=== PATIENT | female | born 1950 | race Caucasian/White ===

== ENCOUNTER 2016-11-26 16:09 | Emergency (ER) | payer OTHER, MEDICAID ==
--- NOTE | 2016-11-26 16:24 | EDPHY ---
H & P HPI/ROS: HPI CHIEF COMPLAINT: Left Vieyra epistaxis HISTORY OF PRESENT ILLNESS: This patient very pleasant 66-year-old female, she does not take any daily medications, denies taking blood thinners, she presents emergency room with left Vieyra epistaxis. Patient tells me that approximately 30 minutes ago she started developing left Vieyra epistaxis. She was unable to control her home she decided come the emergency room for evaluation. She denies history of extensive nose bleed she does tell me she has had 2 other episodes recently. No easy bruising. Not on anticoagulation. Since arriving to the emergency room by EMS the nosebleed has resolved. Denies trauma. Past Medical History: Denies any medical history Past Surgical History: Denies recent surgical history Social History: Lives locally, denies drugs, alcohol, tobacco products, primary care doctor is [facility] Family History: Noncontributory ROS REVIEW OF SYSTEMS: A comprehensive 10 point review of systems is otherwise negative aside from elements mentioned in the history of present illness. Exam Constitutional triage nursing summary reviewed, vital signs reviewed, awake/ alert. Eyes normal conjunctivae and sclera, EOMI, PERRLA. HENT left near dark epistaxis anterior region, clotted, right near normal. No active bleeding at this time. normal inspection, atraumatic, moist mucus membranes, no epistaxis, neck supple/ no meningismus, no raccoon eyes. Respiratory clear to auscultation bilaterally, normal breath sounds, no respiratory distress, no wheezing. Cardiovascular rate normal, regular rhythm, no murmur, no edema, distal pulses normal. Gastrointestinal soft, non-tender, no rebound, no guarding, normal bowel sounds, no distension, no pulsatile mass. Genitourinary no CVA tenderness. Musculoskeletal no midline vertebral tenderness, full range of motion, no calf swelling, no tenderness of extremities, no meningismus, good pulses, neurovascularly intact. Skin pink, warm, & dry, no rash, skin atraumatic. Neurologic awake, alert and oriented x 3, AAOx3, moves all 4 extremities equally, motor intact, sensory intact, CN II-XII intact, normal cerebellar, normal vision, normal speech. Psychiatric normal mood/affect. Heme/Lymph/Immune no lymphadenopathy. Differential Diagnosis: Includes but is not limited to in a particular order, epistaxis, anterior epistaxis, posterior epistaxis Medical Decision Making: Plan for this time epistaxis has resolved. Nasal clamp for 20 minutes re-evaluate. Re-evaluation: 1723: Re-examination at this time CBC unremarkable no evidence of low platelets or anemia, epistaxis has resolved. Nasal clamp removed no further bleeding. Will outpatient go home. Return precautions given. She understands to apply direct pressure for 20-30 minutes if she rebleeds return emergency room if she cannot get stop. Source: Patient, EMS - Medical/Surgical History Hx Asthma: No Hx Chronic Respiratory Disease: No Hx Diabetes: No Hx Cardiac Disease: No Hx Renal Disease: No Hx Cirrhosis: No Hx Alcoholism: No Hx HIV/AIDS: No Hx Splenectomy or Spleen Trauma: No Other PMH: PMH: tonselecomy, vaginal issue at 18 - Social History Smoking Status: Never smoked Constitutional: Initial Vital Signs Temperature (C) 36.9 C 11/26/16 16:26 Heart Rate 69 11/26/16 16:26 Respiratory Rate 18 11/26/16 16:26 Blood Pressure 121/69 H 11/26/16 16:26 O2 Sat (%) 93 11/26/16 16:26 O2 Delivery Mode Room Air Allergies/Adverse Reactions: No Known Allergies Allergy (Unverified 01/08/16 16:58) Home Medications: Medication Instructions Recorded NK [No Known Home Meds] 01/08/16 Medical Decision Making - Data Points Laboratory Results: Laboratory Results 11/26/16 16:45 11/26/16 16:45 WBC 6.70 10^3/uL 10^3/uL (3.80-9.50) RBC 4.40 10^6/uL 10^6/uL (4.18-5.33) Hgb 13.4 g/dL g/dL (12.6-16.3) Hct 39.9 % % (38.0-47.0) MCV 90.7 fL fL (81.5-99.8) MCH 30.5 pg pg (27.9-34.1) MCHC 33.6 g/dL g/dL (32.4-36.7) RDW 12.6 % % (11.5-15.2) Plt Count 181 10^3/uL 10^3/uL (150-400) MPV 12.2 fL H fL (8.7-11.7) Neut % (Auto) 71.7 % % (39.3-74.2) Lymph % (Auto) 19.3 % % (15.0-45.0) [place] % (Auto) 7.0 % % (4.5-13.0) Eos % (Auto) 1.3 % % (0.6-7.6) Baso % (Auto) 0.4 % % (0.3-1.7) Nucleat RBC Rel Count 0.0 % % (0.0-0.2) Absolute Neuts (auto) 4.80 10^3/uL 10^3/uL (1.70-6.50) Absolute Lymphs (auto) 1.29 10^3/uL 10^3/uL (1.00-3.00) Absolute Monos (auto) 0.47 10^3/uL 10^3/uL (0.30-0.80) Absolute Eos (auto) 0.09 10^3/uL 10^3/uL (0.03-0.40) Absolute Basos (auto) 0.03 10^3/uL 10^3/uL (0.02-0.10) Absolute Nucleated RBC 0.00 10^3/uL 10^3/uL (0-0.01) Immature Gran % 0.3 % % (0.0-1.1) Immature Gran # 0.02 10^3/uL 10^3/uL (0.00-0.10) Departure - Departure Disposition: Home, Routine, Self-Care Clinical Impression: Epistaxis Condition: Good Instructions: Nosebleed (ED) Additional Instructions: 1. Please return emergency room if you have any worsening symptoms questions or concerns. 2. If you develops a rebleed of the nose apply direct pressure for 20 minutes. Tilt her head forward. To see if he can get it to stop. If you are having trouble getting is not return emergency room. Referrals: Patient,NotPresent [Primary Care Provider] - As per Instructions Arlyn Adkins MD [Medical Doctor] - As per Instructions
[2016-11-26 16:55] LABS: % IMMATURE GRANULYOCYTES 0.3 % (0.0-1.1); ABSOLUTE IMMATURE GRANULOCYTES 0.02 10^3/uL (0.00-0.10); ADD DIFF? NO; ADD MORPH? NO; ADD SCAN? NO; ATYPICAL LYMPHOCYTE FLAG 10 (0-99); FRAGMENT RBC FLAG 0 (0-99); HEMATOCRIT 39.9 % (38.0-47.0); HEMOGLOBIN 13.4 g/dL (12.6-16.3); LEFT SHIFT FLG 10 (0-99); LIPEMIA HEMOLYSIS FLAG 80 (0-99); MEAN CELL HEMOGLOBIN 30.5 pg (27.9-34.1); MEAN CELL HEMOGLOBIN CONCENTR. 33.6 g/dL (32.4-36.7); MEAN CELL VOLUME 90.7 fL (81.5-99.8); MEAN PLATELET VOLUME 12.2 fL (8.7-11.7); PLATELET CLUMPS FLAG 0 (0-99); PLATELET COUNT 181 10^3/uL (150-400); RED CELL DISTRIBUTION WIDTH 12.6 % (11.5-15.2)
[2016-11-26 18:24] VITALS: BP 146/85; PULSE 72; RESP 20; TEMP 98.1; O2SAT 95
== END 2016-11-26 18:23 | disposition home or self-care (01) ==
LOC: EDUNIT#
DX: R04.0 Epistaxis (principal)

== ENCOUNTER 2016-12-06 11:32 | Emergency (ER) | payer OTHER, MEDICAID ==
[2016-12-06] MEDS ORDERED: OXYMETAZOLINE 30 ML NASAL SPRAY EACHNARE ONE (11:37)
[2016-12-06] MEDS ORDERED: OXYMETAZOLINE 30 ML NASAL SPRAY ONE (11:48)
[2016-12-06 11:55] VITALS: RESP 16
--- NOTE | 2016-12-06 12:35 | EDPHY ---
H & P Stated Complaint: Nose bleed Time Seen by Provider: 12/06/16 11:32 HPI/ROS: CHIEF COMPLAINT: nosebleed HISTORY OF PRESENT ILLNESS: 66-year-old female presents emergency department with a nosebleed that started 40 minutes prior to arrival. Patient reports she woke up, blew her nose and gently picked it and she started bleeding out of her left nare. Patient had a nasal clamp at home that broke. She was not able to control with direct pressure. Patient reports increased nosebleeds over the last year, she was seen in the emergency department 10 days ago with an epistaxis that was controlled with direct pressure. Patient is not on any anticoagulants. She denies chest pain or shortness of breath. She denies headache. REVIEW OF SYSTEMS: A comprehensive 10 point review of systems is otherwise negative aside from elements mentioned in the history of present illness. Source: Patient, Old records Exam Limitations: No limitations - Medical/Surgical History Hx Asthma: No Hx Chronic Respiratory Disease: No Hx Diabetes: No Hx Cardiac Disease: No Hx Renal Disease: No Hx Cirrhosis: No Hx Alcoholism: No Hx HIV/AIDS: No Hx Splenectomy or Spleen Trauma: No Other PMH: PMH: tonselecomy, vaginal issue at 18 - Social History Smoking Status: Never smoked - Physical Exam Exam: General: Alert, nontoxic. ENT: Tympanic membranes clear, external auditory canal, external ear and surrounding soft tissue including over the mastoid unremarkable. Nasopharynx with area of excoriation to left nare nasal septum, no current bleeding, there is no rhinorrhea. Oropharynx without erythema or edema. There is no exudate. No tonsillar hypertrophy. No asymmetry. The uvula is midline. No elevation of tongue. There is no hoarseness. No drooling, patient has good control of their oral secretions. No trismus. No stridor. Cardiac: Regular rate and rhythm. Respiratory: Lungs clear to auscultation bilaterally. Neurological: no meningismus. Skin: No rashes. Constitutional: Initial Vital Signs Heart Rate 66 12/06/16 11:35 Respiratory Rate 16 12/06/16 11:35 Blood Pressure 157/84 H 12/06/16 11:35 O2 Sat (%) 96 12/06/16 11:35 O2 Delivery Mode Room Air Allergies/Adverse Reactions: No Known Allergies Allergy (Unverified 01/08/16 16:58) Home Medications: Medication Instructions Recorded NK [No Known Home Meds] 01/08/16 Medical Decision Making ED Course/Re-evaluation: 66-year-old female presents emergency department by ambulance for epistaxis. On arrival to the emergency department she has a nasal clamp in place with no current bleeding. Patient flew her nose to clear out the clot and 1 spray of Afrin was placed in each nostril. No epistaxis identified on exam though area of friable tissue to left nare was identified. Patient was kept in the emergency department for 1 hour with no return of epistaxis. She has an appointment next week with ENT. - Data Points Medications Given: Discontinued Medications Oxymetazoline HCl (Afrin Nasal [place]) 2 sprays EACHNARE EDNOW ONE Stop: 12/06/16 11:38 Last Admin: 12/06/16 11:50 Dose: 1 spray Departure - Departure Disposition: Home, Routine, Self-Care Clinical Impression: Anterior epistaxis Condition: Good Instructions: Nosebleed (ED) Additional Instructions: Use 1 spray of Afrin in each nostril daily. Sleep with a humidifier at night, drink plenty of fluids, use saline nasal spray a few times a day. Follow up with the Ear Nose and Throat doctor as scheduled. Return to the emergency department for any recurrent nosebleed that does not stop after placing the nasal clamp for 20 minutes. Referrals: [facility] [Other] - As per Instructions Harjeet Roque PA [Physician Director Of Student Aid] - As per Instructions (ENT in [place])
[2016-12-06 13:06] VITALS: BP 165/81; PULSE 62; O2SAT 92
== END 2016-12-06 13:05 | disposition home or self-care (01) ==
LOC: EDUNIT#
DX: R04.0 Epistaxis (principal)

== ENCOUNTER 2017-06-17 10:26 | Emergency (ER) | payer OTHER, MEDICAID ==
[2017-06-17] MEDS ORDERED: ASPIRIN 81 MG CHEWABLE TAB PO ONE (10:47)
[2017-06-17] MEDS ORDERED: NS 500 ML IV ONE (10:47)
--- NOTE | 2017-06-17 10:52 | EDPHY ---
H & P Time Seen by Provider: 06/17/17 10:26 HPI/ROS: CHIEF COMPLAINT: Lightheaded HISTORY OF PRESENT ILLNESS: The patient is a 67-year-old female who presents emergency department with ongoing lightheadedness. Patient states that she may have had some bad food that her friend cooked her last night. She felt as though she had an upset stomach. She developed significant lightheadedness around 9:00 p.m. last night. Is persisted until she called EMS today. She has been unable to get out of her bed. EMS found the patient incontinent of both urine and stool. The patient denies chest pain or shortness of breath. Her abdominal symptoms have resolved. She has no pain. She denies nausea or vomiting. Patient has no dysuria or frequency. Patient denies headache. She has no focal weakness or numbness. REVIEW OF SYSTEMS: My complete review of systems is negative except as mentioned in the HPI. Past Medical/Surgical History: Includes previous episodes of lightheadedness Past surgical history: tonsillectomy Social History: The patient lives at home alone. Smoking Status: Never smoked Physical Exam: Vitals noted GENERAL: No acute distress, alert. Mildly disheveled. Closed 30. HEENT: Eyes normal to inspection, normal pharynx, no signs of dehydration. NECK: No thyromegaly, no lymphadenopathy, supple. RESPIRATORY: Clear to auscultation bilaterally, no rales, rhonchi or wheezing. CVS: Regular rate and rhythm, no rubs, murmurs, or gallops. ABDOMEN: Soft, nontender, nondistended, no organomegaly. BACK: Normal to inspection, no CVA tenderness. SKIN: Normal color, no rash, warm, dry. No pallor. EXTREMITIES: No pedal edema, no calf tenderness, no Homans sign or cords, no joint swelling. NEURO/PSYCH: Higher functions: Alert and Oriented x3. Normal speech and cognition. Normal mood and affect. Cranial nerves: Normal as tested. Cerebellar: Normal as tested. Good finger to nose, good [id number], normal gait. Peripheral exam: Normal motor exam. Normal sensation. Normal reflexes. Constitutional: Initial Vital Signs Temperature (C) 36.3 C 06/17/17 11:05 Heart Rate 71 06/17/17 11:05 Respiratory Rate 16 06/17/17 11:05 Blood Pressure 166/80 H 06/17/17 11:05 O2 Sat (%) 93 06/17/17 11:05 O2 Delivery Mode Room Air Allergies/Adverse Reactions: No Known Allergies Allergy (Unverified 06/17/17 11:04) Home Medications: Medication Instructions Recorded Garlic 06/17/17 [place] 06/17/17 Turmeric 06/17/17 Medical Decision Making - Diagnostics EKG Interpretation: Sinus rhythm at 60. Normal axis. Normal intervals. No ST or T-wave abnormalities. Imaging Results: Imaging Impressions Chest X-Ray 06/17/17 10:48 Impression: Impending CHF. Head CT 06/17/17 10:51 Impression: 1. Moderate atrophy. 2. No hemorrhage, mass effect, or definite acute peripheral infarct. 3. Moderate nonspecific hypodensities in the white matter of bilateral cerebral hemispheres. Differential diagnosis includes microvascular ischemic disease, post-infectious/post-inflammatory sequela, atypical demyelinating disease, or migraine-related sequela. Small white matter lacunar infarcts may also have this appearance. If symptoms worsen, additional imaging may be necessary. Findings discussed with Beatrice Bradford M.D. at 11:58 hour, 06/17/2017. ED Course/Re-evaluation: In the emergency department I met EMS on arrival. I took report from the mine development engineer. Patient's glucose was 126. I discussed the plan with the patient. I answered all her questions. Laboratory studies, chest x-ray, EKG and head CT were ordered. Patient's CBC is unremarkable. Chemistry panel is essentially normal. D-dimer is elevated at 0.69. Head CT: No acute disease noted. Please refer the dictated report. I discussed with the patient answered all her questions. On recheck the patient stated she was feeling better. She has no complaints of pain. She is no longer feeling lightheaded or dizzy. Because of her elevated D dimer a CT angio of the chest was ordered. CT angio chest: Please refer the dictated report. No acute disease noted. I rechecked the patient and she was feeling better. She had no complaints on recheck. Clear to auscultation laterally. No focal deficits. She was able to ambulate without difficulty. Differential Diagnosis: My differential includes but is not limited to electrolyte abnormality, sugar abnormality, ACS, acute SD, dysrhythmia, CVA, pneumonia urinary tract infection , dehydration, bacteremia, sepsis - Data Points Laboratory Results: Laboratory Results 06/17/17 10:56 06/17/17 10:56 06/17/17 06/17/17 06/17/17 12:55 10:56 10:56 WBC RBC Hgb Hct MCV MCH MCHC RDW Plt Count MPV Neut % (Auto) Lymph % (Auto) [place] % (Auto) Eos % (Auto) Baso % (Auto) Nucleat RBC Rel Count Absolute Neuts (auto) Absolute Lymphs (auto) Absolute Monos (auto) Absolute Eos (auto) Absolute Basos (auto) Absolute Nucleated RBC Immature Gran % Immature Gran # PT 13.0 SEC SEC (12.0-15.0) INR 0.96 (0.83-1.16) APTT 25.4 SEC SEC (23.0-38.0) D-Dimer 0.69 ug/mLFEU H ug/mLFEU (0.00-0.50) Sodium 144 mEq/L mEq/L (134-144) Potassium 4.2 mEq/L mEq/L (3.5-5.2) Chloride 110 mEq/L mEq/L (97-110) Carbon Dioxide 21 mEq/l L mEq/l (22-31) Anion Gap 13 mEq/L mEq/L (8-16) BUN 11 mg/dL mg/dL (7-23) Creatinine 0.6 mg/dL mg/dL (0.6-1.0) Estimated GFR > 60 Glucose 127 mg/dL H mg/dL (70-100) Calcium 10.3 mg/dL mg/dL (8.5-10.4) Total Bilirubin 1.2 mg/dL mg/dL (0.1-1.4) Conjugated Bilirubin 0.2 mg/dL mg/dL (0.0-0.5) Unconjugated Bilirubin 1.0 mg/dL mg/dL (0.0-1.1) AST 14 IU/L IU/L (14-46) ALT 30 IU/L IU/L (9-52) Alkaline Phosphatase 74 IU/L IU/L (38-126) Troponin I < 0.012 ng/mL ng/mL (0.000-0.034) Total Protein 6.6 g/dL g/dL (6.3-8.2) Albumin 3.9 g/dL g/dL (3.5-5.0) Lipase 66 IU/L IU/L (23-300) Urine Color YELLOW Urine Appearance CLEAR Urine pH 7.0 (5.0-7.5) Ur Specific [place] 1.009 (1.002-1.030) Urine Protein NEGATIVE (NEGATIVE) Urine Ketones NEGATIVE (NEGATIVE) Urine Blood NEGATIVE (NEGATIVE) Urine Nitrate NEGATIVE (NEGATIVE) Urine Bilirubin NEGATIVE (NEGATIVE) Urine Urobilinogen NEGATIVE EU EU (0.2-1.0) Ur Leukocyte Esterase NEGATIVE (NEGATIVE) Urine RBC NONE SEEN /hpf /hpf (0-3) Urine WBC NONE SEEN /hpf /hpf (0-3) Ur Epithelial Cells TRACE /lpf /lpf (NONE-1+) Urine Mucus TRACE /lpf /lpf (NONE-1+) Urine Glucose NEGATIVE (NEGATIVE) 06/17/17 10:56 WBC 7.13 10^3/uL 10^3/uL (3.80-9.50) RBC 5.15 10^6/uL 10^6/uL (4.18-5.33) Hgb 15.4 g/dL g/dL (12.6-16.3) Hct 45.0 % % (38.0-47.0) MCV 87.4 fL fL (81.5-99.8) MCH 29.9 pg pg (27.9-34.1) MCHC 34.2 g/dL g/dL (32.4-36.7) RDW 12.5 % % (11.5-15.2) Plt Count 203 10^3/uL 10^3/uL (150-400) MPV 12.5 fL H fL (8.7-11.7) Neut % (Auto) 77.9 % H % (39.3-74.2) Lymph % (Auto) 14.7 % L % (15.0-45.0) [place] % (Auto) 5.5 % % (4.5-13.0) Eos % (Auto) 0.6 % % (0.6-7.6) Baso % (Auto) 0.3 % % (0.3-1.7) Nucleat RBC Rel Count 0.0 % % (0.0-0.2) Absolute Neuts (auto) 5.56 10^3/uL 10^3/uL (1.70-6.50) Absolute Lymphs (auto) 1.05 10^3/uL 10^3/uL (1.00-3.00) Absolute Monos (auto) 0.39 10^3/uL 10^3/uL (0.30-0.80) Absolute Eos (auto) 0.04 10^3/uL 10^3/uL (0.03-0.40) Absolute Basos (auto) 0.02 10^3/uL 10^3/uL (0.02-0.10) Absolute Nucleated RBC 0.00 10^3/uL 10^3/uL (0-0.01) Immature Gran % 1.0 % % (0.0-1.1) Immature Gran # 0.07 10^3/uL 10^3/uL (0.00-0.10) PT INR APTT D-Dimer Sodium Potassium Chloride Carbon Dioxide Anion Gap BUN Creatinine Estimated GFR Glucose Calcium Total Bilirubin Conjugated Bilirubin Unconjugated Bilirubin AST ALT Alkaline Phosphatase Troponin I Total Protein Albumin Lipase Urine Color Urine Appearance Urine pH Ur Specific [place] Urine Protein Urine Ketones Urine Blood Urine Nitrate Urine Bilirubin Urine Urobilinogen Ur Leukocyte Esterase Urine RBC Urine WBC Ur Epithelial Cells Urine Mucus Urine Glucose Medications Given: Discontinued Medications Aspirin (Aspirin) 324 mg PO EDNOW ONE Stop: 06/17/17 10:48 Last Admin: 06/17/17 11:02 Dose: Not Given Sodium Chloride (Ns) 500 mls @ 1,000 mls/hr IV EDNOW ONE PRN Reason: Protocol Stop: 06/17/17 11:16 Last Admin: 06/17/17 11:00 Dose: 500 mls Departure - Departure Disposition: Home, Routine, Self-Care Clinical Impression: Lightheaded Condition: Good Instructions: Near Syncope (ED), Lightheadedness (ED) Additional Instructions: Return with worsening lightheadedness dizziness, chest pain or shortness of breath. Referrals: [facility] [Other] - 1-2 days without fail
[2017-06-17 11:07] VITALS: RESP 16; O2SAT 93
[2017-06-17 11:16] LABS: INR 0.96 (0.83-1.16)
--- NOTE | 2017-06-17 11:18 | CPEKG ---
Heart Rate: 60 RR Interval: 1000 P-R Interval: 164 QRSD Interval: 90 QT Interval: 444 QTC Interval: 444 P [place]: 94 QRS [place]: 46 T Wave [place]: 50 EKG Severity - NORMAL ECG - EKG Impression: SINUS RHYTHM Electronically Signed By: Luis Manuel Thakkar 18-Jun-2017 20:38:30
[2017-06-17 11:23] LABS: ABSOLUTE IMMATURE GRANULOCYTES 0.07 10^3/uL (0.00-0.10); ADD DIFF? NO; ADD MORPH? NO; ADD SCAN? NO; APTT 25.4 SEC (23.0-38.0); ATYPICAL LYMPHOCYTE FLAG 0 (0-99); FRAGMENT RBC FLAG 0 (0-99); HEMOGLOBIN 15.4 g/dL (12.6-16.3); LEFT SHIFT FLG 0 (0-99); LIPEMIA HEMOLYSIS FLAG 90 (0-99); MEAN CELL HEMOGLOBIN 29.9 pg (27.9-34.1); MEAN CELL HEMOGLOBIN CONCENTR. 34.2 g/dL (32.4-36.7); MEAN CELL VOLUME 87.4 fL (81.5-99.8); MEAN PLATELET VOLUME 12.5 fL (8.7-11.7); PLATELET CLUMPS FLAG 0 (0-99); PLATELET COUNT 203 10^3/uL (150-400); RED BLOOD CELL COUNT 5.15 10^6/uL (4.18-5.33); RED CELL DISTRIBUTION WIDTH 12.5 % (11.5-15.2)
[2017-06-17 11:34] LABS: ALANINE AMINOTRANSFERASE 30 IU/L (9-52); ALBUMIN 3.9 g/dL (3.5-5.0); ALKALINE PHOSPHATASE 74 IU/L (38-126); ANION GAP 13 mEq/L (8-16); ASPARTATE AMINOTRANSFERASE 14 IU/L (14-46); BILIRUBIN,TOTAL 1.2 mg/dL (0.1-1.4); BILIRUBIN-CONJUGATED 0.2 mg/dL (0.0-0.5); CALCIUM 10.3 mg/dL (8.5-10.4); CARBON DIOXIDE 21 mEq/l (22-31); CHLORIDE 110 mEq/L (97-110); CREATININE 0.6 mg/dL (0.6-1.0); GLOMERULAR FILTRATION RATE > 60; GLUCOSE 127 mg/dL (70-100); POTASSIUM 4.2 mEq/L (3.5-5.2); SODIUM 144 mEq/L (134-144); TOTAL PROTEIN 6.6 g/dL (6.3-8.2)
[2017-06-17 11:46] LABS: TROPONIN I < 0.012 ng/mL (0.000-0.034)
[2017-06-17 13:06] LABS: COLOR YELLOW; LEUKOCYTE ESTERASE,URINE NEGATIVE (NEGATIVE); NITRITE,URINE NEGATIVE (NEGATIVE)
[2017-06-17 13:09] LABS: MUCUS TRACE /lpf (NONE-1+)
[2017-06-17 13:10] LABS: RBC,URINE NONE SEEN /hpf (0-3); WBC,URINE NONE SEEN /hpf (0-3)
[2017-06-17] MEDS ORDERED: IOPAMIDOL (ISOVUE 370) 100 ML BTL IV ONE ×2 (13:37→14:27)
[2017-06-17 16:36] VITALS: BP 151/100; PULSE 76; TEMP 97.7
== END 2017-06-17 16:45 | disposition home or self-care (01) ==
LOC: EDUNIT#
DX: R42 Dizziness and giddiness (principal); E86.9 Volume depletion, unspecified
CPT/HCPCS: 70450; 71010; 71275; 93005; 99285; Q9967